=== PATIENT | male | born 1945 | race Caucasian/White ===

== ENCOUNTER → 2016-08-08 | Day surgery (SDC) | payer OTHER ==
[~2016-08-08] MED LIST: ALLER-FEX180 MG PO; ASPIR 8181 MG PO; COREG 25MG TAB25 MG PO; FLOMAX 0.4 MG0.4 MG PO; GLUCOTROL 10 MG10 MG PO; HYDRALAZINE HCL50 MG PO; LACTULOSE10 GM/15 M PO; LIPITOR TAB 2020 MG PO; MAPAP500 MG PO; MIRALAX17 GM PO; MS CONTIN TAB S60 MG PO; NORVASC 5 MG TAB5 MG PO; OXYCODONE-ACET1 EACH PO; PANTOPRAZOLE SO40 MG PO; PROSCAR5 MG PO; PROZAC20 MG PO; TAB-A-VITE1 EACH PO; TERBINAFINE HC250 MG PO; TRAZODONE HCL100 MG PO; WELLBUTRIN XL150 MG PO; ZOFRAN ODT4 MG PO
[2016-08-08 09:59] LABS: HEMOGLOBIN 12.2 gm/dl (14.0-17.5); RED BLOOD COUNT 4.18 M/UL (4.20-5.50); WHITE BLOOD COUNT 8.4 K/UL (4.5-11.0)
== END | disposition home or self-care (01) ==
LOC: OPSV2 09:00
PROVIDERS: Orthopaedic Surgery
DX: Z01.812 Encounter for preprocedural laboratory examination (principal); Z01.810 Encounter for preprocedural cardiovascular examination; M48.06 Spinal stenosis, lumbar region; S34.109A Unspecified injury to unspecified level of lumbar spinal cord, initial encounter; G82.20 Paraplegia, unspecified; E11.9 Type 2 diabetes mellitus without complications; I10 Essential (primary) hypertension
CPT/HCPCS: 36415; 80048; 81001; 83036; 85025; 93005

== ENCOUNTER 2016-08-10 05:38 | Inpatient (IN) | payer OTHER ==
[~2016-08-10] VITALS: Ht 182.9 cm; Wt 86.2 kg
[2016-08-10] MEDS ORDERED: NORVASC 5 MG TAB5 MG PO (06:22)
[2016-08-10] MEDS ORDERED: ASPIR 8181 MG PO (06:22)
[2016-08-10] MEDS ORDERED: LIPITOR TAB 2020 MG PO (06:23)
[2016-08-10] MEDS ORDERED: WELLBUTRIN XL150 MG PO (06:23)
[2016-08-10] MEDS ORDERED: PROSCAR5 MG PO (06:24)
[2016-08-10] MEDS ORDERED: COREG 25MG TAB25 MG PO (06:24)
[2016-08-10] MEDS ORDERED: PROZAC20 MG PO (06:25)
[2016-08-10] MEDS ORDERED: GLUCOTROL 10 MG10 MG PO (06:25)
[2016-08-10] MEDS ORDERED: MS CONTIN TAB S60 MG PO (06:26)
[2016-08-10] MEDS ORDERED: HYDRALAZINE HCL50 MG PO (06:26)
[2016-08-10] MEDS ORDERED: PANTOPRAZOLE SO40 MG PO (06:27)
[2016-08-10] MEDS ORDERED: MIRALAX17 GM PO (06:27)
[2016-08-10] MEDS ORDERED: TAB-A-VITE1 EACH PO (06:28)
[2016-08-10] MEDS ORDERED: TRAZODONE HCL100 MG PO (06:29)
[2016-08-10] MEDS ORDERED: FLOMAX 0.4 MG0.4 MG PO (06:29)
[2016-08-10] MEDS ORDERED: TERBINAFINE HC250 MG PO (06:29)
[2016-08-10] MEDS ORDERED: ALLER-FEX180 MG PO (06:31)
[2016-08-10] MEDS ORDERED: MAPAP500 MG PO (06:31)
[2016-08-10] MEDS ORDERED: LACTULOSE10 GM/15 M PO (06:32)
[2016-08-10] MEDS ORDERED: ZOFRAN ODT4 MG PO (06:32)
[2016-08-10] MEDS ORDERED: OXYCODONE-ACET1 EACH PO (06:33)
[2016-08-10 22:03] LABS: BUN/CREATININE RATIO 16 (0-10)
[2016-08-11 05:04] LABS: HEMOGLOBIN 9.8 gm/dl (14.0-17.5); RED BLOOD COUNT 3.45 M/UL (4.20-5.50); WHITE BLOOD COUNT 6.8 K/UL (4.5-11.0)
[2016-08-11 05:12] LABS: BUN/CREATININE RATIO 16 (0-10)
[2016-08-12 04:16] LABS: RED BLOOD COUNT 3.51 M/UL (4.20-5.50)
[2016-08-12 04:20] LABS: WHITE BLOOD COUNT 9.3 K/UL (4.5-11.0)
[2016-08-12 04:32] LABS: BUN/CREATININE RATIO 14 (0-10)
[2016-08-13 06:16] LABS: HEMOGLOBIN 8.7 gm/dl (14.0-17.5); WHITE BLOOD COUNT 8.6 K/UL (4.5-11.0)
[2016-08-13 06:20] LABS: RED BLOOD COUNT 3.09 M/UL (4.20-5.50)
[2016-08-13 06:31] LABS: BUN/CREATININE RATIO 20 (0-10)
[2016-08-14 06:40] LABS: HEMOGLOBIN 9.3 gm/dl (14.0-17.5); RED BLOOD COUNT 3.25 M/UL (4.20-5.50); WHITE BLOOD COUNT 7.4 K/UL (4.5-11.0)
== END 2016-08-15 12:50 | DRG 460 ==
LOC: ZOBSOF 05:38 → OR 07:45 → EDSTATUS 07:45 → CCU 15:57 → M/S 08-12 14:50
PROVIDERS: Internal Medicine Infectious Disease; Physician Assistant; ADMIT Orthopaedic Surgery
PROC: 0QU03JZ Supplement Lumbar Vertebra with Synthetic Substitute, Percutaneous Approach (ICD-10-PCS; 2016-08-10)
PROC: 01NB0ZZ Release Lumbar Nerve, Open Approach (ICD-10-PCS; 2016-08-10)
PROC: 01NB0ZZ Release Lumbar Nerve, Open Approach (ICD-10-PCS; 2016-08-10)
PROC: 01NB0ZZ Release Lumbar Nerve, Open Approach (ICD-10-PCS; 2016-08-10)
PROC: 0QU007Z Supplement Lumbar Vertebra with Autologous Tissue Substitute, Open Approach (ICD-10-PCS; 2016-08-10)
PROC: 0QP004Z Removal of Internal Fixation Device from Lumbar Vertebra, Open Approach (ICD-10-PCS; 2016-08-10)
PROC: 0QS03ZZ Reposition Lumbar Vertebra, Percutaneous Approach (ICD-10-PCS; 2016-08-10)
PROC: 0QU03JZ Supplement Lumbar Vertebra with Synthetic Substitute, Percutaneous Approach (ICD-10-PCS; 2016-08-10)
PROC: 30233H0 Transfusion of Autologous Whole Blood into Peripheral Vein, Percutaneous Approach (ICD-10-PCS; 2016-08-10)
PROC: 0QS03ZZ Reposition Lumbar Vertebra, Percutaneous Approach (ICD-10-PCS; principal; 2016-08-10 07:45)
PROC: 0SG10AJ Fusion of 2 or more Lumbar Vertebral Joints with Interbody Fusion Device, Posterior Approach, Anterior Column, Open Approach (ICD-10-PCS; 2016-08-10 07:45)
DX: S32.029A Unspecified fracture of second lumbar vertebra, initial encounter for closed fracture (principal); T84.226A Displacement of internal fixation device of vertebrae, initial encounter; G82.20 Paraplegia, unspecified; D62 Acute posthemorrhagic anemia; S32.049A Unspecified fracture of fourth lumbar vertebra, initial encounter for closed fracture; S32.059A Unspecified fracture of fifth lumbar vertebra, initial encounter for closed fracture; V49.9XXA Car occupant (driver) (passenger) injured in unspecified traffic accident, initial encounter; Y79.3 Surgical instruments, materials and orthopedic devices (including sutures) associated with adverse incidents; M48.06 Spinal stenosis, lumbar region; E11.9 Type 2 diabetes mellitus without complications; I10 Essential (primary) hypertension; E78.5 Hyperlipidemia, unspecified; K21.9 Gastro-esophageal reflux disease without esophagitis; N40.0 Benign prostatic hyperplasia without lower urinary tract symptoms; G89.4 Chronic pain syndrome; K59.00 Constipation, unspecified; F32.9 Major depressive disorder, single episode, unspecified; F17.200 Nicotine dependence, unspecified, uncomplicated; Z79.84 Long term (current) use of oral hypoglycemic drugs; Z79.82 Long term (current) use of aspirin; Z79.1 Long term (current) use of non-steroidal anti-inflammatories (NSAID); Z79.891 Long term (current) use of opiate analgesic; Z79.899 Other long term (current) drug therapy; Z98.890 Other specified postprocedural states; Z82.49 Family history of ischemic heart disease and other diseases of the circulatory system; Z80.9 Family history of malignant neoplasm, unspecified
CPT/HCPCS: 36415; 72110; 76000; 80048; 80053; 82962; 85025; 85027; 86850; 86900; 86901; 97110; 97116; 97530; C1713; J0171; J0690; J1100; J2250; J2370; J2405; J2710; J3010; J7030; J7040; J7050; J7120